=== PATIENT | male | born 1980 | race Caucasian/White ===

== ENCOUNTER 2019-04-24 12:03 | Emergency (ER) | payer OTHER ==
[2019-04-24 13:41] LABS: #Basophils 0.1 thou/uL (0.0-0.2); #Eosinphils 0.3 thou/uL (0.0-0.7); #Lymphocytes 0.4 thou/uL (1.20-3.40); #Monocytes 0.9 thou/uL (0.11-0.59); #Neutrophils 11.5 thou/uL (1.40-6.50); %Basophils 0.5 % (0.0-1.0); %Eosinophils 2.5 % (0.0-10.0); %Lymphocytes 2.7 % (21.0-51.0); %Monocytes 6.9 % (0.0-10.0); %Neutrophils 87.5 % (42.0-75.0); Hemoglobin 8.4 g/dL (14.0-18.0); Mean Corpuscular HGB CONC 28.1 g/dL (32.0-36.0); Mean Corpuscular Hemoglobin 16.4 pg (27.0-31.0); Mean Corpuscular Volume 58.3 fL (78.0-98.0); Mean Platelet Volume 5.8 fL (7.4-10.4); Platelet Count 314 thou/uL (130-400); RBC Distribution Width 18.7 % (11.5-14.5); Red Blood Cell (RBC) Count 5.13 mill/uL (4.70-6.10); White Blood Cell (WBC) Count 13.2 thou/uL (4.8-10.8)
[2019-04-24 14:03] LABS: ALT (SGPT) 29 U/L (8-55); AST (SGOT) 26 U/L (5-34); Albumin 4.7 g/dL (3.5-5.0); Alkaline Phosphatase 75 U/L (40-110); Anion Gap 14 mmol/L (10-20); BUN (Urea Nitrogen) 16 mg/dL (8.9-20.6); Bilirubin, Total 0.5 mg/dL (0.2-1.2); Calc. Creatinine Clearance 0 mL/min (70-130); Carbon Dioxide 21 mmol/L (22-29); Chloride 105 mmol/L (98-107); Estimated GFR-MDRD 88; Globulin 2.5 g/dL (2.4-3.5); Glucose 160 mg/dL (70-105); Potassium 4.2 mmol/L (3.5-5.1); Protein, Total 7.2 g/dL (6.0-8.3); Sodium 136 mmol/L (136-145)
[2019-04-24 14:10] LABS: Anisocytosis SLIGHT = 6-15 cells (100X) (0-5/hpf); Basophilic Stippling SLIGHT = 1-2 cells (100X) (None Seen); Howell Jolly Bodies SLIGHT = 1-2 cells (100X) (None Seen); Hypochromia MODERATE=16-30 cells (100X) (0-5/hpf); MDiff Complete? YES; Microcytosis MODERATE=15-30 cells (100X) (0-5/hpf); Ovalocytes SLIGHT = 2-5 cells (100X) (0-1/hpf); Platelet Morphology Comment Appears Adequate; Poikilocytosis SLIGHT = 6-15 cells (100X) (0-5/hpf); Polychromasia MODERATE = 3-4 cells (100X) (0-2/hpf); Reflex for Review?? YES; Schistocytes SLIGHT = 2-5 cells (100X) (0-1/hpf); Target Cells SLIGHT = 2-5 cells (100X) (0-1/hpf); Tear Drops SLIGHT = 2-5 cells (100X) (0-1/hpf)
--- NOTE | 2019-04-24 14:28 | RAD ---
PORTABLE CHEST ONE VIEW: 04/24/2019 1:58 p.m. HISTORY: Chest pain. FINDINGS: The heart size is normal. The lungs are well expanded without lobar consolidation, pneumothoraces or pleural effusions. IMPRESSION: No acute process. POS: OFF
[2019-04-24 14:34] LABS: Bacteria/HPF None Seen HPF (None Seen); Bilirubin Negative (Negative); Blood, Urine Negative (Negative); Clarity Clear (Clear); Glucose, Urine (Dipstick) Normal (Negative); Leukocyte Negative Leu/uL (Negative); Nitrite Negative (Negative); Protein, Urine (Dipstick) 30 mg/dL (Neg-Trace); RBC/HPF 0-3 HPF (0-3); Squamous Epithelial 0-3 HPF (0-3); Urobilinogen Normal mg/dL (Less than 2); WBC/HPF 0-3 HPF (0-3)
[2019-04-24 14:37] LABS: INR-International Normal Ratio 1.1; PTT 27.2 SEC (22.9-36.1); Prothrombin Time 14.1 SEC (12.0-14.7)
[2019-04-24] MEDS ORDERED: Morphine 4 MG/ML VIAL ONE (16:09)
[2019-04-24] MEDS ORDERED: Ondansetron PF 4 MG/2 ML Vial ONE (16:09)
== END 2019-04-24 17:38 | disposition home or self-care (01) ==
LOC: ERS 12:03
DX: B34.9 Viral infection, unspecified (principal); R11.2 Nausea with vomiting, unspecified; R19.7 Diarrhea, unspecified; K21.9 Gastro-esophageal reflux disease without esophagitis; J45.909 Unspecified asthma, uncomplicated
CPT/HCPCS: 36415; 71045; 80053; 81003; 81015; 84484; 85025; 85060; 85610; 85730; 93005; 96361; 96374; 96375; J2270; J2405

== ENCOUNTER 2020-09-21 06:59 | Emergency (ER) | payer OTHER | END 2020-09-21 08:18 | disposition home or self-care (01) | LOC: ERS 06:59 | DX: L29.9 Pruritus, unspecified (principal); Z76.0 Encounter for issue of repeat prescription | CPT/HCPCS: 99281 ==

== ENCOUNTER 2020-11-13 14:58 | Emergency (ER) | payer OTHER | END 2020-11-13 16:53 | disposition home or self-care (01) | LOC: ERS 14:58 | DX: B35.3 Tinea pedis (principal); J45.909 Unspecified asthma, uncomplicated; K21.9 Gastro-esophageal reflux disease without esophagitis; Z79.899 Other long term (current) drug therapy | CPT/HCPCS: 99281 ==

== ENCOUNTER 2022-11-17 16:39 | Inpatient (IN) | payer OTHER ==
[2022-11-17 17:35] LABS: #Basophils 0.1 thou/uL (0.0-0.2); #Eosinphils 0.2 thou/uL (0.0-0.7); #Monocytes 0.9 thou/uL (0.11-0.59); #Neutrophils 7.9 thou/uL (1.40-6.50); %Basophils 0.6 % (0.0-1.0); %Eosinophils 1.6 % (0.0-10.0); %Monocytes 8.6 % (0.0-10.0); %Neutrophils 76.9 % (42.0-75.0); Hemoglobin 6.7 g/dL (14.0-18.0); Mean Corpuscular HGB CONC 26.1 g/dL (32.0-36.0); Mean Corpuscular Hemoglobin 16.4 pg (27.0-31.0); Mean Platelet Volume 9.8 fL (7.4-10.4); Platelet Count 325 10x3/uL (130-400); RBC Distribution Width 19.9 % (11.5-14.5); Red Blood Cell (RBC) Count 4.08 mill/uL (4.70-6.10); White Blood Cell (WBC) Count 10.3 10x3/uL (4.8-10.8)
[2022-11-17 17:57] LABS: ALT (SGPT) 7 U/L (8-55); AST (SGOT) 12 U/L (5-34); Alkaline Phosphatase 67 U/L (40-110); Anion Gap 10 mmol/L (10-20); BUN (Urea Nitrogen) 10 mg/dL (8.9-20.6); Bilirubin, Total 0.3 mg/dL (0.2-1.2); Calc. Creatinine Clearance 0 mL/min (70-130); Carbon Dioxide 26 mmol/L (22-29); Chloride 101 mmol/L (98-107); Estimated GFR 109; Glucose 105 mg/dL (70-105); Potassium 3.3 mmol/L (3.5-5.1); Sodium 134 mmol/L (136-145)
[2022-11-17 18:07] LABS: Anisocytosis SLIGHT = 6-15 cells HPF (0-5); Burr Cells SLIGHT = 2-5 cells HPF (0-1); CellaVision Operator ID LAB.KB; Hypochromia SLIGHT = 6-15 cells HPF (0-5); Microcytosis SLIGHT = 6-15 cells HPF (0-5); Ovalocytes SLIGHT = 2-5 cells HPF (0-1); Platelet Adequacy Comment Platelets Normal; Polychromasia SLIGHT = 2-3 cells HPF (0-2)
[2022-11-17] MEDS ORDERED: Cefepime 2 GM VIAL ONE (21:50)
[2022-11-17] MEDS ORDERED: Ondansetron PF 4 MG/2 ML Vial IVP PRN (21:54)
[2022-11-17] MEDS ORDERED: Albuterol 200 PUFF (6.7GM INHALER) INH PRN (22:06)
[2022-11-17 22:16] LABS: Iron 17 ug/dL (65-175); Iron Binding Capacity, Total 361 mcg/dL (261-462)
[2022-11-17 22:35] LABS: Ferritin 9.63 ng/mL (22-322); Thyroid Stimulating Hormone 0.878 uIU/mL (0.35-4.94)
[2022-11-17] MEDS ORDERED: Vancomycin 1 GM/200 ML (FROZEN) BAG ONE ×2 (22:41→23:09)
[2022-11-18] VITALS: BMI 29.2
[2022-11-18] MEDS: Morphine 4 MG/ML VIAL SLOW IVP PRN ×4 (00:20→19:57)
[2022-11-18] MEDS ORDERED: Pantoprazole 40 MG VIAL IVP SCH ×2 (04:15→09:00)
[2022-11-18 07:40] LABS: #Basophils 0.1 thou/uL (0.0-0.2); #Eosinphils 0.3 thou/uL (0.0-0.7); #Monocytes 0.8 thou/uL (0.11-0.59); #Neutrophils 5.4 thou/uL (1.40-6.50); %Basophils 0.6 % (0.0-1.0); %Eosinophils 3.6 % (0.0-10.0); %Lymphocytes 17.6 % (21.0-51.0); %Monocytes 9.9 % (0.0-10.0); %Neutrophils 67.7 % (42.0-75.0); Hemoglobin 6.7 g/dL (14.0-18.0); Mean Corpuscular HGB CONC 26.5 g/dL (32.0-36.0); Mean Corpuscular Volume 64.4 fl (78.0-98.0); Mean Platelet Volume 9.7 fL (7.4-10.4); Platelet Count 301 10x3/uL (130-400); RBC Distribution Width 20.7 % (11.5-14.5); Red Blood Cell (RBC) Count 3.93 mill/uL (4.70-6.10)
[2022-11-18 07:45] LABS: Manual Diff?? YES
[2022-11-18 08:04] LABS: Anion Gap 6 mmol/L (10-20); BUN (Urea Nitrogen) 11 mg/dL (8.9-20.6); Calc. Creatinine Clearance 176 mL/min (70-130); Calcium 8.6 mg/dL (7.8-10.44); Carbon Dioxide 27 mmol/L (22-29); Chloride 105 mmol/L (98-107); Estimated GFR 112; Glucose 98 mg/dL (70-105); Potassium 3.7 mmol/L (3.5-5.1); Sodium 134 mmol/L (136-145)
[2022-11-18] MEDS: Cefepime 2 GM in Sodium Chloride 0.9% 100 ML IVPB SCH ×2 (08:09→20:57)
[2022-11-18 08:31] LABS: Band 2 % (5-11); CellaVision Operator ID LAB.GE; Elliptocytes SLIGHT = 2-5 cells HPF (0-1); Eosinophils 2 % (0-10); Hypochromia SLIGHT = 6-15 cells HPF (0-5); Lymphocytes 16 % (21-51); Microcytosis MODERATE=15-30 cells HPF (0-5); Monocytes 3 % (0-10); Neutrophil 77 % (42-75); Platelet Adequacy Comment Platelets Normal; Polychromasia SLIGHT = 2-3 cells HPF (0-2); Total Cell Count 100
[2022-11-18] MEDS ORDERED: Vancomycin 1 GM in Premix Bag 1 BAG IVPB SCH (09:00)
[2022-11-18] MEDS: Iron, Sodium Ferric Gluconate 250 MG in Sodium Chloride 0.9% 250 ML 250 ML IVPB SCH (09:58)
[2022-11-18] MEDS: VANCOMYCIN 1.25 GM/250 ML BAG 1.25 GM in Premix Bag 1 BAG IVPB SCH (12:11)
[2022-11-18] MEDS ORDERED: traMADol HCl 50 MG TAB PO PRN (12:34)
[2022-11-18 13:20] LABS: Hemoglobin 7.1 g/dL (14.0-18.0)
[2022-11-18 14:05] LABS: HBCM Index 0.09 S/CO (0-0.79); HBSAg Index 0.22 S/CO (0-0.99); HIV (1/2) Antibody/Antigen Non-Reactive (NonReactive); HIV 1/2 INDEX 0.14 S/CO (<1.00); Hep A IgM AB Non-Reactive S/CO (NonReactive); Hep A IgM S/CO 0.25 S/CO (0-0.79); Hep B Surf Ag Non-Reactive S/CO (NonReactive); Hep C IgG Ab Non-Reactive S/CO (NonReactive); Hepatitis B Core IgM Abs Non-Reactive S/CO (NonReactive)
[2022-11-18] MEDS ORDERED: GoLYTELY 4,000 ml Bottle PO SCH (14:15)
[2022-11-18] MEDS: Pantoprazole 40 MG VIAL IVP SCH (16:17)
[2022-11-18 18:19] LABS: Hemoglobin 6.6 g/dL (14.0-18.0)
[2022-11-19] MEDS: VANCOMYCIN 1.25 GM/250 ML BAG 1.25 GM in Premix Bag 1 BAG IVPB SCH (00:09)
[2022-11-19] MEDS: Morphine 4 MG/ML VIAL SLOW IVP PRN ×6 (00:09→23:57)
[2022-11-19 03:31] LABS: Hemoglobin 7.4 g/dL (14.0-18.0)
[2022-11-19 03:56] LABS: ALT (SGPT) Less than 7 U/L (8-55); AST (SGOT) 9 U/L (5-34); Albumin 3.6 g/dL (3.5-5.0); Alkaline Phosphatase 55 U/L (40-110); Anion Gap 9 mmol/L (10-20); BUN (Urea Nitrogen) 7 mg/dL (8.9-20.6); Bilirubin, Total 0.5 mg/dL (0.2-1.2); Calc. Creatinine Clearance 174 mL/min (70-130); Calcium 8.7 mg/dL (7.8-10.44); Carbon Dioxide 26 mmol/L (22-29); Chloride 104 mmol/L (98-107); Estimated GFR 112; Globulin 2.7 g/dL (2.4-3.5); Glucose 120 mg/dL (70-105); Protein, Total 6.3 g/dL (6.0-8.3); Sodium 135 mmol/L (136-145)
[2022-11-19] MEDS: Pantoprazole 40 MG VIAL IVP SCH ×2 (04:30→15:06)
[2022-11-19] MEDS: Cefepime 2 GM in Sodium Chloride 0.9% 100 ML IVPB SCH ×2 (08:33→19:49)
[2022-11-19 10:25] LABS: Vancomycin, Trough 8.1 ug/mL
[2022-11-19] MEDS: Vancomycin 1.5 GRAM/300 ML BAG 1.5 GM in Premix Bag 1 BAG IVPB SCH ×2 (11:31→23:47)
[2022-11-19] MEDS: Acetaminophen 325 MG TAB PO PRN ×2 (12:25→23:49)
[2022-11-19] MEDS: Iron, Sodium Ferric Gluconate 250 MG in Sodium Chloride 0.9% 250 ML 250 ML IVPB SCH (15:06)
[2022-11-19] MEDS ORDERED: GoLYTELY 4,000 ml Bottle PO SCH (20:00)
[2022-11-20] MEDS: Pantoprazole 40 MG VIAL IVP SCH ×2 (04:27→15:34)
[2022-11-20] MEDS: Morphine 4 MG/ML VIAL SLOW IVP PRN ×4 (04:31→23:19)
[2022-11-20 06:51] LABS: Hemoglobin 7.5 g/dL (14.0-18.0); Platelet Count 162 10x3/uL (130-400)
[2022-11-20] MEDS: Acetaminophen 325 MG TAB PO PRN (07:46)
[2022-11-20] MEDS: Cefepime 2 GM in Sodium Chloride 0.9% 100 ML IVPB SCH ×2 (07:47→19:34)
[2022-11-20] MEDS: Vancomycin 1.5 GRAM/300 ML BAG 1.5 GM in Premix Bag 1 BAG IVPB SCH ×2 (11:32→23:18)
[2022-11-20] MEDS ORDERED: PROPOFOL 200 MG/20 ML VIAL ONE (13:35)
[2022-11-20 17:05] LABS: ANA Symphony (Qualitative) Negative (Negative); ANA Symphony (Quantitative) 0.3 Ratio (< 0.7 Negative); dsDNA IgG Antibody 1.7 IU/mL (<10 Negative)
[2022-11-20 18:21] LABS: EliA Celiac New Method **** NEW METHOD ****; t-Transglutaminase (tTG) IgA 1.2 EliAU/mL (<7 Negative); t-Transglutaminase (tTG) IgG 1.2 EliAU/mL (<7 Negative)
[2022-11-20] MEDS ORDERED: Silver Sulfadiazine 1% Cream 20 GM TUBE TOP SCH (20:45)
[2022-11-20] MEDS ORDERED: Silver Sulfadiazine 50 GM TUBE TOP SCH (21:15)
[2022-11-20 22:22] LABS: Vancomycin, Trough 11.5 ug/mL
[2022-11-21] MEDS: Morphine 4 MG/ML VIAL SLOW IVP PRN ×2 (05:04→09:44)
[2022-11-21] MEDS: Pantoprazole 40 MG VIAL IVP SCH (05:04)
[2022-11-21 05:41] LABS: Hemoglobin 7.7 g/dL (14.0-18.0)
[2022-11-21 06:02] VITALS: TEMP 98.1
[2022-11-21] MEDS: Cefepime 2 GM in Sodium Chloride 0.9% 100 ML IVPB SCH (08:29)
[2022-11-21] MEDS ORDERED: Silver Sulfadiazine 50 GM TUBE TOP SCH (09:00)
[2022-11-21] MEDS ORDERED: Silver Sulfadiazine 1% Cream 20 GM TUBE TOP SCH (09:00)
[2022-11-21] MEDS: Vancomycin 1.5 GRAM/300 ML BAG 1.5 GM in Premix Bag 1 BAG IVPB SCH (10:24)
[2022-11-21 12:21] VITALS: BP 134/76
[2022-11-22 15:38] LABS: Hemoglobin A2 1.5 % (1.8-3.2); Hemoglobin F 0 % (0.0-2.0); Interpretation Note: (.)
== END 2022-11-21 13:51 | disposition home or self-care (01) | DRG 602 ==
LOC: ERS 16:39 → SUATTDRO 16:39 → ERHOLD 21:41 → 2NO 23:44 → T4-A 11-18 15:59
PROVIDERS: ADMIT Family Medicine; ATTEND Internal Medicine
PROC: 30233N1 Transfusion of Nonautologous Red Blood Cells into Peripheral Vein, Percutaneous Approach (ICD-10-PCS; principal; 2022-11-18)
PROC: 0DD98ZX Extraction of Duodenum, Via Natural or Artificial Opening Endoscopic, Diagnostic (ICD-10-PCS; 2022-11-20)
PROC: 0DJD8ZZ Inspection of Lower Intestinal Tract, Via Natural or Artificial Opening Endoscopic (ICD-10-PCS; 2022-11-20)
DX: L03.115 Cellulitis of right lower limb (principal); K21.01 Gastro-esophageal reflux disease with esophagitis, with bleeding; K22.11 Ulcer of esophagus with bleeding; E87.1 Hypo-osmolality and hyponatremia; D50.9 Iron deficiency anemia, unspecified; E87.6 Hypokalemia; J45.909 Unspecified asthma, uncomplicated; K21.9 Gastro-esophageal reflux disease without esophagitis; F41.9 Anxiety disorder, unspecified; K27.7 Chronic peptic ulcer, site unspecified, without hemorrhage or perforation; R13.10 Dysphagia, unspecified; Z18.81 Retained glass fragments; K44.9 Diaphragmatic hernia without obstruction or gangrene; K64.4 Residual hemorrhoidal skin tags; K64.8 Other hemorrhoids; Z79.899 Other long term (current) drug therapy
CPT/HCPCS: 36415; 36430; 80048; 80053; 80074; 80202; 82274; 82728; 83010; 83021; 83516; 83540; 83550; 83605; 84443; 85014; 85018; 85025; 85046; 85049; 86038; 86225; 86850; 86900; 86901; 87040; 87338; 87389; 88305; 93005; 96365; 96367; 97139; C9113; J0692; J2270; J2405; J2704; J2916; J3370; J3370-JW; J3490; J7050; P9016